=== PATIENT | male | born 1985 | race Two or more races ===

== ENCOUNTER 2023-11-17 15:37 | Emergency (ER) | payer OTHER, MEDICAID ==
[~2023-11-17] VITALS: Ht 162.6 cm; Wt 94.9 kg
[2023-11-17] MEDS ORDERED: CYCL-839 PO (20:40)
[2023-11-17] MEDS ORDERED: IBUP1TAB5 PO (20:40)
[2023-11-17 21:37] VITALS: BP 113/75; PULSE 65; RESP 18; TEMP 97.5; O2SAT 97
== END 2023-11-17 21:38 | disposition home or self-care (01) ==
LOC: ER 15:37
DX: S23.3XXA Sprain of ligaments of thoracic spine, initial encounter (principal); S00.03XA Contusion of scalp, initial encounter; W01.0XXA Fall on same level from slipping, tripping and stumbling without subsequent striking against object, initial encounter; Y93.89 Activity, other specified; Y92.89 Other specified places as the place of occurrence of the external cause; Y99.8 Other external cause status
CPT/HCPCS: 70450; 71250